=== PATIENT | male | born 1960 | race Caucasian/White ===

== ENCOUNTER 2017-05-22 17:01 | Emergency (ER) | payer SELFPAY ==
[2017-05-22] MEDS ORDERED: Ibuprofen 800 MG TAB ONE (17:20)
== END 2017-05-22 17:38 | disposition home or self-care (01) ==
LOC: ERS 17:01
DX: M25.571 Pain in right ankle and joints of right foot (principal); M25.572 Pain in left ankle and joints of left foot; F17.210 Nicotine dependence, cigarettes, uncomplicated
CPT/HCPCS: 99284

== ENCOUNTER 2018-12-11 19:03 | Emergency (ER) | payer SELFPAY ==
[2018-12-11] MEDS ORDERED: Ketorolac Tromethamine 30 MG/ML VIAL ONE (19:34)
--- NOTE | 2018-12-11 19:54 | RAD ---
EXAM: 4 views of the right knee HISTORY: Knee pain COMPARISON: None FINDINGS: No knee effusion is seen. There is no evidence of acute fracture or dislocation. Mild vasquez lofemoral degenerative changes are seen. No soft tissue swelling is present. IMPRESSION: No evidence of acute osseous abnormality.
--- NOTE | 2018-12-11 21:06 | ULT ---
EXAM: Right lower extremity venous ultrasound HISTORY: Right lower extremity pain and edema COMPARISON: None TECHNIQUE: Multiplanar grayscale and color Doppler images were obtained in a right lower extremity ve nous ultrasound. Spectral analysis of the Doppler waveforms were performed. FINDINGS: The common femoral vein, profunda femoral vein, superficial femoral vein, and popliteal vei n are normal in appearance without visible thrombus. These vessels demonstrate normal compression, flow, and augmentation. The posterior tibial vein and greater saphenous vein are patent without evidence of DVT. A Lopez's cyst is seen posterior to the knee measuring 5.3 cm in greatest dimension. A fluid collecti on along the lateral knee may represent an knee effusion. IMPRESSION: 1. No evidence of DVT. 2. Lopez's cyst 3. Possible knee effusion
== END 2018-12-11 21:30 | disposition home or self-care (01) ==
LOC: ERS 19:03
DX: M71.21 Synovial cyst of popliteal space [Baker], right knee (principal); F17.210 Nicotine dependence, cigarettes, uncomplicated; Z79.899 Other long term (current) drug therapy
CPT/HCPCS: 96372; J1885